=== PATIENT | female | born 1975 | race Caucasian/White ===

== ENCOUNTER → 2019-05-13 | Outpatient (CLI) | payer MEDICAID ==
[~2019-05-13] VITALS: Ht 182.9 cm; Wt 136.7 kg
[~2019-05-13] MED LIST: ALLEGRA60 MG PO; ASPIR-LOW81 MG PO; BENADRYL25 M2 PO; FOLIC ACID0.8 MG PO; GLUCOPHAGE500 MG/TAB PO; MASON NATURAL2000 IU PO; NATURAL IRON65 MG PO; NORCO 325 MG-51 TAB PO; PHENERGAN 25 TA25 MG PO; PHENERGAN25 MG RC; PRENATAL VITAMI1 TA5 PO; PRIL40 PO; PRINZIDE 25 MG-1 TAB PO; PROVENTIL0.09 MG/A1 IH; PROZAC40 MG PO; TRICOR 48MG48 MG PO; XANAX 0.5MG0.5 MG PO; ZOLOFT50 MG PO; ZYRTEC 10MG10 MG PO
[2019-05-13 06:01] VITALS: BP 148/81; PULSE 86
== END ==
LOC: COL.CARD 05:45
DX: R06.02 Shortness of breath (principal); R07.9 Chest pain, unspecified
CPT/HCPCS: A9500